=== PATIENT | female | born 1960 | race Caucasian/White ===

== ENCOUNTER 2018-09-17 13:57 | Outpatient (CLI) | payer OTHER | END 2018-09-17 14:04 | disposition home or self-care (01) | LOC: LAB 13:57 | DX: R10.2 Pelvic and perineal pain (principal); Z51.81 Encounter for therapeutic drug level monitoring ==

== ENCOUNTER 2018-09-25 09:41 | Outpatient (CLI) | payer OTHER | END 2018-09-25 09:47 | disposition home or self-care (01) | LOC: TOM 09:41 | DX: R10.2 Pelvic and perineal pain (principal); R10.84 Generalized abdominal pain | CPT/HCPCS: 74178; Q9965 ==

== ENCOUNTER 2023-05-01 13:54 | Emergency (ER) | payer OTHER ==
[~2023-05-01] VITALS: Ht 160 cm; Wt 74.4 kg
[2023-05-01] MEDS ORDERED: ATORVASTATIN CA40 MG PO (15:13)
[2023-05-01] MEDS ORDERED: PAROXETINE HC37.5 MG PO (15:13)
[2023-05-01] MEDS ORDERED: SYNTHROID75 MCG PO (15:13)
[2023-05-01] MEDS ORDERED: GLUMETZA500 MG PO (15:14)
== END 2023-05-01 17:26 | disposition home or self-care (01) ==
LOC: ER 13:54
DX: D17.79 Benign lipomatous neoplasm of other sites (principal); B35.6 Tinea cruris